=== PATIENT | male | born 1980 | race Caucasian/White ===

== ENCOUNTER 2019-02-06 10:05 | Emergency (ER) | payer OTHER ==
[~2019-02-06] VITALS: Ht 185.4 cm; Wt 79.8 kg
== END 2019-02-06 14:03 | disposition designated cancer center or children's hospital (05) ==
LOC: ER 10:05
DX: S62.630B Displaced fracture of distal phalanx of right index finger, initial encounter for open fracture (principal); W26.8XXA Contact with other sharp object(s), not elsewhere classified, initial encounter; Y93.89 Activity, other specified; Y92.89 Other specified places as the place of occurrence of the external cause; Y99.8 Other external cause status